=== PATIENT | male | born 1955 | race Caucasian/White ===

== ENCOUNTER → 2016-07-04 | Outpatient (CLI) | payer BC ==
[~2016-07-04] MED LIST: ALLOPURINOL100 MG PO; ANDROGEL1% TP; AXIRON30 MG/1.5; BYDUREON SC; CEFTIN500 MG PO; CIPRO 500MG TA500 MG PO; CLORAZEPATE7.5 MG PO; COZAAR 25MG25 MG/TAB PO; DIABETA 5MG5 MG/TAB PO; FLOMAX0.4 MG PO; GLUMETZA1000 MG; GLYBURIDE5 MG PO; LISINOPRIL5 MG PO; METFORMIN500 MG PO; MORPHINE 1515 MG/TAB PO; NAPROXEN375 MG PO; NORCO 325 MG-51 TAB PO; OMEPRAZOLE D/R20 MG PO; PERCOCET 325 MG1 TA2 PO; ZOCOR10 MG PO; ZYLOPRIM 300MG300 MG
== END ==
LOC: COL.RAD 07-03 08:15
DX: N18.9 Chronic kidney disease, unspecified (principal)

== ENCOUNTER → 2017-12-09 | Outpatient (CLI) | payer BC | LOC: COL.RAD 13:36 | DX: M47.817 Spondylosis without myelopathy or radiculopathy, lumbosacral region (principal); M51.26 Other intervertebral disc displacement, lumbar region ==